=== PATIENT | female | born 1960 | race Caucasian/White ===

== ENCOUNTER 2020-03-17 06:40 | Day surgery (SDC) | payer OTHER ==
[2020-03-16 08:37] VITALS: BMI 22.3
[2020-03-17] MEDS ORDERED: MIDAZOLAM HCL 2 MG/2 ML SINGLE DOSE VIAL ONE (07:20)
[2020-03-17] MEDS ORDERED: PROPOFOL 20 ML ONE ×2 (07:20)
[2020-03-17] MEDS ORDERED: SUCCINYLCHOLINE CHLORIDE 200 MG/10 ML SYRINGE ONE (07:20)
[2020-03-17] MEDS ORDERED: LIDOCAINE HCL 2% (20ML MULTI-DOSE VIAL) ONE (08:12)
[2020-03-17] MEDS ORDERED: BUPIVACAINE HCL/PF 0.25% (2.5MG/ML) 10 ML VIAL ONE (08:12)
[2020-03-17] MEDS ORDERED: DEXAMETHASONE SOD PHOSPHATE 4 MG/1 ML VIAL ONE (08:19)
[2020-03-17] MEDS ORDERED: ONDANSETRON 4 MG/2 ML VIAL ONE (08:19)
[2020-03-17] MEDS ORDERED: KETOROLAC TROMETHAMINE 30 MG/1 ML VIAL ONE (08:24)
[2020-03-17] MEDS ORDERED: BUPIVACAINE HCL/PF 0.25% (2.5MG/ML) 10 ML VIAL IJ ONE (08:38)
[2020-03-17] MEDS ORDERED: ONDANSETRON 4 MG/2 ML VIAL IVPUSH PRN (09:10)
[2020-03-17] MEDS ORDERED: LACTATED RINGERS SOLUTION 1,000 ML IV SCH (09:15)
[2020-03-17] MEDS ORDERED: oxyCODONE HCL 5 MG TABLET PO PRN (09:44)
[2020-03-17 12:23] VITALS: TEMP 97.6
[2020-03-17 12:28] VITALS: BP 106/66; PULSE 73
== END 2020-03-17 10:30 | disposition home or self-care (01) ==
LOC: FASU 06:40
PROVIDERS: ATTEND Orthopaedic Surgery Hand Surgery
PROC: 01N54ZZ Release Median Nerve, Percutaneous Endoscopic Approach (ICD-10-PCS; principal; 2020-03-17 08:31)
DX: G56.02 Carpal tunnel syndrome, left upper limb (principal)
CPT/HCPCS: 94760

== ENCOUNTER 2021-03-16 11:32 | Day surgery (SDC) | payer OTHER ==
[2021-03-09 13:14] VITALS: BMI 22.3
[2021-03-16] MEDS ORDERED: LIDOCAINE HCL 2% (20ML MULTI-DOSE VIAL) ONE (12:11)
[2021-03-16] MEDS ORDERED: GUM MASTIC/STORAX/MSAL/ALCOHOL 1 DRP DROPSBTL MC ONE (12:11)
[2021-03-16] MEDS ORDERED: BUPIVACAINE HCL/PF 0.25% (2.5MG/ML) 10 ML VIAL ONE (12:41)
[2021-03-16] MEDS ORDERED: MIDAZOLAM HCL 2 MG/2 ML SINGLE DOSE VIAL ONE (12:54)
[2021-03-16] MEDS ORDERED: PROPOFOL 20 ML ONE (12:56)
[2021-03-16] MEDS ORDERED: ONDANSETRON 4 MG/2 ML VIAL ONE (13:29)
[2021-03-16] MEDS ORDERED: ONDANSETRON 4 MG/2 ML VIAL IVPUSH PRN (13:44)
[2021-03-16] MEDS ORDERED: oxyCODONE HCL 5 MG TABLET PO PRN (13:44)
[2021-03-16] MEDS ORDERED: LACTATED RINGERS SOLUTION 1,000 ML IV SCH (13:45)
[2021-03-16 14:31] VITALS: TEMP 97.8
[2021-03-16 15:03] VITALS: BP 118/68; PULSE 72
== END 2021-03-16 15:04 | disposition home or self-care (01) ==
LOC: FASU 11:32
PROVIDERS: ATTEND Orthopaedic Surgery Hand Surgery
PROC: 01N54ZZ Release Median Nerve, Percutaneous Endoscopic Approach (ICD-10-PCS; principal; 2021-03-16 13:10)
DX: G56.01 Carpal tunnel syndrome, right upper limb (principal)
CPT/HCPCS: 94760